=== PATIENT | female | born 1985 | race Caucasian/White ===

== ENCOUNTER 2016-10-20 05:42 | Inpatient (IN) ==
[2016-10-20] MEDS ORDERED: MEPERIDINE 50 MG/1 ML VIAL IV PRN (06:02)
[2016-10-20] MEDS ORDERED: ONDANSETRON 4 MG/2 ML VIAL IV PRN (06:02)
[2016-10-20] MEDS: LACTATED RINGERS 1,000 ML IV SCH (06:10)
[2016-10-20] MEDS ORDERED: OXYTOCIN/LR 20 UNIT/1,000 ML BAG IV SCH (06:30)
[2016-10-20 07:00] LABS: Basophils % 0.3 % (0.0-0.8); Eosinophils # 0.2 10*3/uL (0.0-0.87); Eosinophils % 2.1 % (0.00-10.9); Hematocrit 28.8 VOL% (35.7-47.0); Hemoglobin 9.5 GM/DL (12.0-16.0); Immature Granulocytes % 2.2 %; Immature Granulocytes Absolute 0.19 #; Lymphocytes # 1.7 10*3/uL (1.4-4.0); Lymphocytes % 19.8 % (21.3-54.2); Mean Corpuscular Hemoglobin 29 PG (27-34); Mean Platelet Volume 9.9 FL (9.6-12.0); Monocytes # 0.6 10*3/uL (0.11-0.8); Monocytes % 6.3 % (1.7-12.7); Neutrophils # 6.1 10*3/uL (1.4-7.4); Neutrophils % 69.3 % (38.7-73.9); Platelet Count 187 T/CUMM (130-400); Red Blood Count 3.31 MC/CUMM (3.8-5.5); Red Cell Distribution Width 13.8 % (9.3-17.3); White Blood Count 8.8 T/CUMM (4-12)
[2016-10-20 07:32] LABS: Albumin 2.6 G/DL (3.4-5.0); Bilirubin,Total 1.2 MG/DL (0.2-1.0); Calcium 8.3 MG/DL (8.5-10.1); Osmolality,Calculated 278.3 MOS/KG (273-304); Potassium 4.3 MMOL/L (3.5-5.1)
[2016-10-20] MEDS ORDERED: BUTORPHANOL 1 MG/ML VIAL ONE (09:00)
[2016-10-20] MEDS ORDERED: BUTORPHANOL 1 MG/ML VIAL IV ONE (09:07)
[2016-10-20] MEDS ORDERED: BUTORPHANOL 2 MG/ML VIAL IV PRN (09:09)
--- NOTE | 2016-10-20 10:59 | OB/GYN History & Physical ---
History of Present Illness Chief complaint: In for augmentation of labor due to early active labor. History of present illness: Ms. Barba is a 31 year old female 8 para 6 labor and 6. The patient presents to the labor department for elective augmentation of labor due to term and early labor. The patient also has a history of precipitous deliveries she is a multipara and she lives more than 1-1/2 hours away from the hospital. The risk and benefits have been thoroughly discussed with this patient and significant other plan of care has been discussed with Dr. Bolton in all parties are in agreement with plan. The patient significant History is positive for HSV the patient has not had any outbreaks. She has had 6 previous vaginal deliveries the largest infant weighing 8 pounds and 1 ounces. She reports no complications with any of those pregnancies. Her labs she is a positive, HIV is negative, hepatitis B is negative, GBS cultures negative. Review of systems negative exception of above. Home Medications Medication Instructions Recorded Confirmed Type Pediatric Multivit Comb No.42 4 tablet PO DAILY 03/25/15 08/16/16 History [J Carlos Complete Chew Tab] Valacyclovir HCl [Valtrex] 1 gram ONCE PRN 08/16/16 08/16/16 History Allergies Allergy/AdvReac Type Severity Reaction Status Date / Time latex Allergy Severe HIVES Verified 10/20/16 06:02 Penicillins Allergy Intermediate HIVES Verified 12/26/14 11:32 12 point system: reviewed and no additional remarkable complaints except as stated Medical,Surgical,& Family Hx - Medical History Medical History: noncontributory Musculoskeletal: No history of: Amputation Reproductive: History of: Ectopic (2006), Sexually Transmitted Disorders (HSV) - Surgical History Surgical History: noncontributory Thoracic Surgeries: Patient denies;: Lobectomy Neurologic Surgeries: Patient denies: Neurologic Surgery Reproductive Surgeries: Patient denies;: Gynecologic Surgery - Family History Family History: Reports;: Family Cancer (MGF), Family Heart Disease (Mom), Family Stroke (mother and father) Denies;: Family Anesthesia Reaction, Family Diabetes, Family Hematology, Family Hypertension, Family Psychiatric Problems, Additional Family History - Social History Smoking Status: Current every day smoker Frequency of Alcohol Use: None Type of Drug Use: None Marital Status: Lives With:: Significant Other Functional capacity: independent ambulation 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 General appearance: mild distress - Antepartum / Post Antpartum Exam Cervix -Dilatation: 4cm Effacement: 70% Station: -1 Rupture: Intact Presentation: vtx Heart Rate: 140s Breast: bilateral: normal Abdomen obstetrics: Present: bowel sounds normal Vagina: Present: normal moisture Uterus exam: Present: enlarged Anus/Rectum: Present: normal perianal skin - Respiratory Respiratory exam: Present: clear to auscultation bilaterally - Cardiovascular Cardiovascular exam: Present: regular rate and rhythm - GI/Abdominal GI/Abdominal exam: Present: normal bowel sounds, soft - Extremities Exam Extremities exam: Present: normal inspection - Neurological Exam Neurological exam: Present: alert, oriented X3 - Psychiatric Psychiatric exam: Present: normal affect, normal mood Assessment and Plan (1) Active labor at term Status: Acute Assessment and plan: Admit IV fluids IV pitocin per protocol Epidural if desired AROM Anticipate Current Visit: Yes Results - Labs CBC & BMP: 10/20/16 06:39 10/20/16 06:39
[2016-10-20] MEDS ORDERED: LIDOCAINE 1% 50 ML VIAL ONE (12:49)
[2016-10-20] MEDS ORDERED: miSOPROStol 200 MCG TABLET ONE (12:50)
--- NOTE | 2016-10-20 14:03 | Event Note ---
HPI: The patient presented to the labor department in early active labor with a history of precipitous deliveries. The risks and benefits were thoroughly discussed with this patient and significant other and plan care was discussed with Dr. Bolton in all parties are in agreement with plan. Stage I: The patient was admitted she received IV fluids and IV Pitocin per protocol. Artificial rupture membranes was performed with clear fluid noted. The patient progressed in labor with a CAT 1 tracing. She had an uneventful course of labor. She only received IV pain meds for pain control. She tolerated the labor process well. Stage II: The patient was complete and complaining of pressure and a strong desire to push. She pushed for approximately 3 minutes after which time the 's head was delivered, the mouth and nose suctioned on the perineum. The remainder of the infant was delivered at 1310, a viable female infant was noted. The infant was placed on mom's abdomen for skin to skin bonding. Apgars were 9 at 1 minute and 9 at 5 minutes. weight was 6 pounds and 3 ounces. The cord pH was obtained and sent to the lab. Stage III: Spontaneous delivery of a Lin placenta @ 1315 with a three- vessel cord noted. Placenta was further examined and appeared to be grossly intact. The vagina and cervix inspected with no tears or lacerations noted. Estimated blood loss was approximately 150 mL. At the time of dictation mother and baby are both in stable condition.
[2016-10-20] MEDS ORDERED: oxyCODONE/ACETAMINOPHEN 5-325 MG TABLET PO PRN (14:04)
[2016-10-20] MEDS ORDERED: HYDROCORTISONE 2.5% RECTAL CREAM 30 GM TUBE TOP PRN (14:04)
[2016-10-20] MEDS ORDERED: OXYTOCIN/LR 20 UNIT/1,000 ML BAG IV ONE (14:04)
[2016-10-20] MEDS ORDERED: RHO(D) IMMUNE GLOBULIN 300 MCG SYRINGE IM ONE (14:04)
[2016-10-20] MEDS ORDERED: BENZOCAINE 20%/MENTHOL 0.5% SPRAY 56 GM CAN TOP PRN (14:04)
[2016-10-20] MEDS ORDERED: DIPH/TET/ACEL PERT BOOSTER VACCINE 0.5 ML VIAL IM ONE (14:04)
[2016-10-20] MEDS ORDERED: ACETAMINOPHEN 325 MG TABLET PO PRN (14:04)
[2016-10-20] MEDS ORDERED: WITCH HAZEL PADS 100/JAR TOP PRN (14:04)
[2016-10-20] MEDS ORDERED: BISACODYL 10 MG SUPP RECTAL PRN (14:04)
[2016-10-20] MEDS ORDERED: MEASLES/MUMPS/RUBELLA VACCINE 0.5 ML VIAL SUBCUT ONE (14:04)
[2016-10-20] MEDS ORDERED: LANOLIN 50% CREAM 0.3 OZ TUBE TOP PRN (14:04)
[2016-10-20] MEDS ORDERED: ACETAMINOPHEN/CODEINE 300-30 MG TABLET PO PRN (14:06)
[2016-10-20 14:08] LABS: Cord Arterial Blood HCO3 22.2 MMOL/L
[2016-10-20 14:11] LABS: Cord Venous Blood HCO3 20.3 MMOL/L; Cord Venous Blood PCO2 35.6 MMHG; Cord Venous Blood PO2 50.6 MMHG
[2016-10-20] MEDS: oxyCODONE/ACETAMINOPHEN 5-325 MG TABLET PO PRN ×2 (16:41→21:00)
[2016-10-20] MEDS: IBUPROFEN 800 MG TABLET PO PRN (16:42)
[2016-10-20] MEDS: DOCUSATE SODIUM 100 MG CAPSULE PO SCH (21:00)
[2016-10-21] MEDS: LACTATED RINGERS 1,000 ML IV SCH (03:11)
[2016-10-21] MEDS: oxyCODONE/ACETAMINOPHEN 5-325 MG TABLET PO PRN ×2 (04:00→16:25)
[2016-10-21] MEDS: IBUPROFEN 800 MG TABLET PO PRN ×3 (04:00→16:25)
[2016-10-21 06:39] LABS: Basophils % 0.3 % (0.0-0.8); Eosinophils # 0.2 10*3/uL (0.0-0.87); Eosinophils % 2.4 % (0.00-10.9); Hematocrit 29.8 VOL% (35.7-47.0); Hemoglobin 9.3 GM/DL (12.0-16.0); Immature Granulocytes % 1.3 %; Immature Granulocytes Absolute 0.13 #; Lymphocytes # 2.1 10*3/uL (1.4-4.0); Lymphocytes % 20.4 % (21.3-54.2); Mean Corpuscular HGB Conc 31.2 GM/DL (32-36); Mean Corpuscular Hemoglobin 28 PG (27-34); Mean Corpuscular Volume 90.9 FL (87-102); Monocytes # 0.6 10*3/uL (0.11-0.8); Monocytes % 5.8 % (1.7-12.7); Neutrophils % 69.8 % (38.7-73.9); Platelet Count 177 T/CUMM (130-400); Red Blood Count 3.28 MC/CUMM (3.8-5.5); Red Cell Distribution Width 13.9 % (9.3-17.3); White Blood Count 10.1 T/CUMM (4-12)
[2016-10-21] MEDS: FERROUS SULFATE 325 MG TABLET PO SCH ×2 (08:36→21:20)
[2016-10-21] MEDS: DOCUSATE SODIUM 100 MG CAPSULE PO SCH ×2 (08:36→21:20)
[2016-10-21] MEDS ORDERED: ONDANSETRON 4 MG/2 ML VIAL IV PRN (13:47)
--- NOTE | 2016-10-21 13:48 | OB/GYN Progress Note ---
Assessment and Plan (1) Active labor at term Status: Acute Assessment and plan: Admit IV fluids IV pitocin per protocol Epidural if desired AROM Anticipate Current Visit: Yes (2) Vaginal delivery Status: Acute Assessment and plan: Initiate routine orders. 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 Bonding well with . Exam BRAND ACTIVATION MANAGER - Constitutional Vitals: Vital Signs Temp Pulse Resp BP Pulse Ox 10/21/16 11:57 96.4 F L 64 18 97/65 100 10/21/16 07:34 97.2 F L 53 L 18 93/65 100 10/21/16 04:00 96.7 F L 74 18 100/59 100 10/21/16 00:00 97.4 F L 64 18 86/46 99 10/20/16 20:00 97.8 F 84 20 107/68 100 10/20/16 17:48 18 10/20/16 17:30 71 20 113/76 98 10/20/16 16:30 63 20 99/54 98 10/20/16 16:00 20 10/20/16 15:30 65 20 110/78 98 10/20/16 15:00 63 20 111/62 99 10/20/16 14:30 97.6 F 56 L 20 102/71 99 General appearance: no acute distress - Antepartum / Post Post Exam Breast: bilateral: normal Abdomen obstetrics: Present: bowel sounds normal Vagina: Present: normal moisture, discharge (Light lochia rubra) Uterus exam: Present: enlarged (ff ml) Anus/Rectum: Present: normal perianal skin - Respiratory Respiratory exam: Present: clear to auscultation bilaterally - Cardiovascular Cardiovascular exam: Present: regular rate and rhythm - GI/Abdominal GI/Abdominal exam: Present: normal bowel sounds, soft - Extremities Exam Extremities exam: Present: normal inspection - Neurological Exam Neurological exam: Present: alert, oriented X3 - Psychiatric Psychiatric exam: Present: normal affect, normal mood - Skin Skin exam: Present: normal color, warm Results - Labs CBC & BMP: 10/21/16 06:25 10/20/16 06:39
[2016-10-21] MEDS ORDERED: ONDANSETRON 4 MG/2 ML VIAL ONE (13:50)
--- NOTE | 2016-10-21 13:51 | Discharge Summary ---
Hospital Course - Hospital Course Hospital Course: Ms. Barba is a 31-year-old female who presented to the labor department in active labor. The patient subsequently delivered a viable with no complications. She is followed a normal course and she has not well. Her bleeding is minimal with no odor. Her perineum was intact with no edema. Vital signs and lab values are stable. She is bonding well with her infant. Her pain level is minimal. She will be discharged to home prescriptions for pain and a follow-up performed in our office. Diagnosis - Discharge Diagnosis (1) Active labor at term Status: Acute (2) Vaginal delivery Status: Acute Specialty Discharge - Follow Up or Referrals Follow up with: Ever Bolton MD [Physician] - (Call Dr. Bolton office on Monday10/24/2016 to make a 6 week follow up) Discharge Plan - Discharge Data Disposition: Disch To Home/Self Care Condition at Discharge: Stable Discharge Diet: advance to your usual diet, regular diet Activity: resume usual activities as tolerated Weight Bearing at Discharge: weight bear as tolerated Driving: no restrictions Contact your physician if you experience:: fever over 101, pain uncontrolled by pain medications - Discharge Medications New Acetamin/Codeine 300-30 Tab [Tylenol/Codeine #3] 2 tablet PO Q4H PRN #30 tablet PRN Reason: Pain Mild (1-3) Ibuprofen Tab [Motrin Tab] 800 mg PO Q6H PRN #30 tablet PRN Reason: Pain Moderate (4-7) Ferrous Sulfate Tab [Feosol Original Tab] 325 mg PO BID #60 tablet No Action Pediatric Multivit Comb No.42 [Flintstones Complete Chew Tab] 4 tablet PO DAILY Valacyclovir HCl [Valtrex] 1 gram ONCE PRN PRN Reason: Rash - Follow Up or Referral Follow Up: Ever Bolton MD [Physician] - (Call Dr. Bolton office on Monday10/24/2016 to make a 6 week follow up) - Forms/Instructions Instructions: Acetaminophen/Codeine (By mouth), Perineal Care (DC), Vaginal Delivery (DC), Bleeding (DC) Exam - Constitutional Vitals: Period Temp Pulse Resp BP Sys/Kat Pulse Ox Last 24 Hr 96.4 F-98 F 55-70 18-18 89-104/50-70 95-100 General appearance: no acute distress - Head Head exam: Present: normal inspection - Respiratory Respiratory exam: Present: clear to auscultation bilaterally - Cardiovascular Cardiovascular exam: Present: regular rate and rhythm - GI/Abdominal GI/Abdominal exam: Present: normal bowel sounds, soft - Extremities Exam Extremities exam: Present: normal inspection - Neurological Exam Neurological exam: Present: alert, oriented X3 - Psychiatric Psychiatric exam: Present: normal affect, normal mood - Skin Skin exam: Present: normal color, warm DS: Provider Date of admission: 10/20/16 06:00 Primary care physician: . No PCP Attending physician on admission: Ever Bolton MD Consults: 10/20/16 06:02 Consult to Anesthesiology [CONS] Routine Consulting Provider: Reason for Anesthesiology: Epidural Consult Comment: Epidural for pain managment 10/20/16 14:05 Consult to Casing Flusher [CONS] Routine Consult Casing Flusher: Breast Feeding Discharging clinician: Randee Douglas CNM Expected date of discharge: 10/22/16
[2016-10-22 07:40] VITALS: BP 91/50
[2016-10-22] MEDS: IBUPROFEN 800 MG TABLET PO PRN (08:40)
[2016-10-22] MEDS: FERROUS SULFATE 325 MG TABLET PO SCH (08:40)
[2016-10-22] MEDS: DOCUSATE SODIUM 100 MG CAPSULE PO SCH (10:37)
== END 2016-10-22 12:30 | disposition home or self-care (01) | DRG 560 ==
LOC: N.LDOUT 05:42 → N.LD 05:48 → N.OB 14:32
PROVIDERS: ADMIT Obstetrics & Gynecology; ATTEND Obstetrics & Gynecology